=== PATIENT | male | born 1990 | race Caucasian/White ===

== ENCOUNTER 2018-01-23 18:13 | Inpatient (IN) | payer MEDICAID, OTHER ==
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
[2018-01-23] MEDS ORDERED: SPIRONOLACTONE 25 MG TAB PO ONE ×2 (18:53→19:08)
[2018-01-23 19:14] LABS: PLATELET COUNT 240 10^3/uL (150-400)
[2018-01-24] MEDS ORDERED: SPIRONOLACTONE 25 MG TAB PO ONE (08:18)
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
--- NOTE | 2018-01-24 08:31 | ASMTTCLDSP ---
TLC Discharge Disposition Disposition: Answers: Admit Disposition Notes: Notes: Admit 3N. Discharge Concerns/Recommendations: Notes: In consultation with [facility] ED physician, Frederick Mendoza MD and on-call psychiatrist, Mike Martins MD, both concurred that pt appears to meet 27-65 criteria requiring psychiatric hospitalization as pt appears to be at risk of harm to self due to a mental illness condition. Pt was given the 3N prohibited belongings list while in the ED. Was patient given the Answers: Yes Inpatient Behavioral Health Prohibited Belongings List while in the ED? For inpatient Mike Martins MD admission, the following psychiatrist agreed to accept patient for admission to Behavioral Health ([facility]): Type of Hold: Answers: M1/72-hour Hold Hold initiated by: Answers: Police Date Signed: 01/24/2018 08:30 AM Electronically Signed By:Frank Dimas
[2018-01-24] MEDS ORDERED: ACETAMINOPHEN 325 MG TAB PO PRN (11:29)
[2018-01-24] MEDS ORDERED: MAG HYDROX/AL HYDROX/SIMETH 30 ML UDCUP PO PRN (11:29)
[2018-01-24] MEDS ORDERED: MAGNESIUM HYDROXIDE 30 ML UDCUP PO PRN (11:29)
--- NOTE | 2018-01-24 11:32 | ASMTBHMTP ---
Master Treatment Plan Master Treatment Plan Answers: Depressed Mood with for: Suicidal Ideation Date: 01/24/2018 Diagnosis on Admission: Major Depressive Disorder, recurrent, severe 296.33 (F33.2) Expected length of stay: 3-5 Reason for admission: Notes: Pt is a 27 yo, homeless, unemployed, male transitioning to female that began hormone replacement treatment in December 2016 under the care of a Dr. Marroquin in [place], [place], with reported history of depression, PTSD, anxiety and alcohol use disorder, brought to [facility] ED by EMS and BPD on M1 hold from the skilled nursing after she had made longitudinal laceration to left forearm with a razor blade in a purposeful suicide attempt. He wounds were cleansed and dressed/ Per M1 hold: Respondent came into contact at the homeless skilled nursing with advocate-employee Cedric at the [facility] doors. Respondent was bleeding from her wrists, having just used a razor blade to cut herself. Respondent surrendered the razor to Cedric who disposed of it. Dispatch notified, respondent told Cedric she was going outside to finish the job. Respondent despondent upon contact. Patient's stated presenting problems: Notes: "I was cutting on myself and people at the skilled nursing called an ambulance". Patient's goals for treatment: Notes: "I don't know I just arrived here about an hour ago". Patient's strengths: Notes: "I'm nice to people". Identify supports outside of hospital: Notes: "I have no support". Discharge criteria: Notes: SI will resolve and ct. will have a plan to safely manage recurrent SI. Initial disposition plan/considerations: Notes: Discuss and set up psychiatric follow up services in the community. Master Treatment Plan Required Signatures Psychiatrist signature: Answers: Mike Martins MD: RN on-shift signature: Answers: RN: Patient signature: Answers: Patient: Date Signed: 01/24/2018 11:31 AM Electronically Signed By:Mona Pardo
--- NOTE | 2018-01-24 11:36 | ASMTCMCOM ---
CM Note CM Note Notes: CC met with ct. (who goes by Jennifer) to develop MTP. Ct. presented as very guarded and irritable. She was wearing a blanket that was wrapped around her face and spoke in a very soft tone. She did not want to disclose much information and her answers were very short. She has been living in the [place] area for a couple of months. She reporting having her two children living in [place]. She refused to engage in a discussion about f/u in the community. She said that she has no support in the area. Date Signed: 01/24/2018 11:36 AM Electronically Signed By:Mona Pardo
[2018-01-24] MEDS: NICOTINE POLACRILEX 2 MG GUM B PRN ×2 (13:00→16:46)
--- NOTE | 2018-01-24 13:32 | PDMN ---
Medical Necessity Medical necessity: [facility] [id number] Major Depressive Disorder, Adult: Inpatient Care: 27 yo w/ major depressive d/o, recurrent, severe; generalized anxiety d/o; PTSD, etoh intoxication, w/ use d/o, severe; borderline personality d/o. M1 hold for risk of harm to self r/t the above.
--- NOTE | 2018-01-24 18:31 | BCON ---
INTERNAL MEDICINE CONSULTATION. DATE OF CONSULTATION: 01/24/2018 REFERRING PHYSICIAN: Mike Martins MD REASON FOR REFERRAL: Medical clearance for inpatient behavioral health stay. HISTORY OF PRESENT ILLNESS: This patient came to the emergency department yesterday, brought in by ambulance from the homeless assisted with suicidal ideation and forearm lacerations. She is a transgender male to female. She has been at the homeless assisted and she was feeling suicidal. She was intoxicated on alcohol when she arrived. Once she became sober, she was evaluated by the mental health team and admitted for further psychiatric care. She currently is without any acute complaints. PAST MEDICAL HISTORY: 1. Prior suicide attempts. 2. Mental health issues with diagnoses of PTSD, major depression, and anxiety. MEDICATIONS: Prior to admission: 1. Estradiol 1 mg IM q.14 days. 2. Spironolactone 50 mg p.o. twice daily. ALLERGIES: There are no known drug allergies. SOCIAL HISTORY: She is homeless, reportedly she has two 9-year-old children in [place]. She reports that she is on Disability and does not have a profession. She is a smoker. She has succeeded in quitting smoking before. She uses alcohol and has a history of polysubstance abuse. FAMILY HISTORY: Noncontributory. REVIEW OF SYSTEMS: She denies fevers or chills, cough or dyspnea, nausea, vomiting, constipation, or diarrhea. She denies symptoms of alcohol withdrawal , including no shakes and no sweats. Otherwise, a 10-point review of systems is negative. PHYSICAL EXAM: VITAL SIGNS: Blood pressure is 118/63, heart rate is 59, respiratory rate is 16, oxygen saturation is 95% on room air, temperature is 36.6 degrees centigrade. Her weight is 79.4 kg for a body mass index of 25.8. GENERAL: This is a well-nourished, well-developed person, lying in bed, sits up for the exam, cooperative and in no acute distress. HEENT: Extraocular movements are intact. Pupils are equal, round, and reactive to light. Mucous membranes are moist. Dentition is in good condition. NECK: Supple. HEART: Regular rate and rhythm with no murmurs, rubs, or gallops. LUNGS: Clear to auscultation bilaterally. ABDOMEN: Benign. EXTREMITIES: There is no cyanosis, clubbing, or edema. NEUROLOGIC: She is alert and oriented x3. Cranial nerves 2-12 are grossly intact. There is no focal weakness and sensation is intact to light touch. SKIN: There are several superficial lacerations on her left forearm. There is no drainage on the dressing when it is removed. LABORATORY STUDIES: CBC revealed an elevated white blood cell count of 12.72. There was no left shift. Otherwise, it was within normal limits. Serum chemistry revealed normal renal function and electrolytes. Toxicology screen in the serum was negative for salicylates or acetaminophen. Ethyl alcohol was elevated at 177. Toxicology screen in the urine was negative for any substances of abuse. ASSESSMENT AND RECOMMENDATIONS: 1. Mental health issues pending further evaluation and management per Psychiatry and the mental health team. 2. Superficial lacerations. These will heal. She might be okay with no dressings at all but applying a simple nonstick dressing with tape to hold in place would be appropriate also. 3. Tobacco dependence syndrome. She reports awareness that smoking along with estrogen replacement raises her risk for blood clots. She reports she has quit smoking before and needs to quit again. She was encouraged regarding smoking cessation. 4. Alcohol abuse. She does not appear to be intoxicated or in withdrawal at present. I see no medical contraindications to this patient's continued stay in the inpatient behavioral health unit or to any psychiatric medications or procedures. 6. Thank you very much for including me in the care of this patient and please do not hesitate to contact me or the hospitalist service should there be need for further medical evaluation. /[id number]/MODL MTDD
[2018-01-24] MEDS: LORazepam 0.5 MG TAB PO PRN (20:39)
[2018-01-24] MEDS: SPIRONOLACTONE 25 MG TAB PO SCH (20:39)
[2018-01-24] MEDS ORDERED: SPIRONOLACTONE 50 MG TAB PO SCH (21:00)
[2018-01-25] MEDS: SPIRONOLACTONE 25 MG TAB PO SCH ×2 (08:30→19:49)
[2018-01-25] MEDS: NICOTINE POLACRILEX 2 MG GUM B PRN ×4 (08:31→16:25)
--- NOTE | 2018-01-25 12:09 | SOAPPROG ---
SOAP Progress Note Assessment/Plan: Assessment: Major Depressive Disorder with anxious distress; Alcohol Use Disorder, Severe; Nicotine Dependence, Homelessness. Slight improvement noted (see subjective/ objective note). Patient is not safe to discharge at this time as patient continues to exhibit signs of depression, and express depression symptoms. Patient requires continued inpatient care because of current depression, and requires inpatient level of care to stabilize in order to no longer be a danger to herself. Patient could benefit from continued inpatient hospitalization for crisis stabilization, safety, medication evaluation, and established continuity of care for continued treatment on outpatient basis after discharge. Plan: 1. Psychotropic medications: No additional medications at this time; after reviewing indicated and appropriate medication options with patient, patient reports she is not currently interested in psychotropic medications. 2. Review with patient informed consent and recommendations for psychotropic medication treatment listed below 3. Labs: A1c, lipid panel, liver function, TSH 4. Therapy: continue milieu and group therapy 5. Further investigation including gathering information from patients relatives and review of past case records to inform treatment plan. 6. Safety/Wellness plan and follow-up outpatient appointments to be established prior to discharge. Next steps are for patient to meet with children's zoo caretaker to plan a safe discharge plan and establish outpatient services for ongoing treatment. 7. Confer with inpatient treatment team regarding treatment plan. 8. Psychosocial stressors addressed through reservoir caretaker. 9. Legal status: M1 10. Consider discharge this week if patient is in stable condition, safe, and has a safe discharge plan. 11. Substance abuse interventions: alcohol and nicotine 12. Contact patients mother to discuss discharge plan; patient potential to travel to [place] to live with her mother after discharge. PSYCHOTROPIC MEDICATION TREATMENT INFORMED CONSENT and RECOMMENDATIONS: Review nature of condition, diagnosis, and prognosis. Review nature and purpose of psychotropic medication treatment. Review type of psychotropic medications being ordered. Review risk and benefits of psychotropic medication treatment. Review probable length of time patient will need to take medications. Review risk and benefits of not undergoing psychotropic medication treatment. Review alternative treatments to psychotropic medications. Review psychotropic medications contraindications, drug-drug interactions, side effects, and importance of reporting any side effects to a psychiatric provider or nurse during inpatient hospitalization, and upon discharge to patients psychiatric outpatient provider, primary care provider, or other health healthcare receptionist. Review importance of asking a nurse, psychiatric provider, or primary care provider any questions or problems concerning the psychotropic medications. Verify patient understands the information that has been provided, and understands, accepts, and agrees to psychotropic medications. Review patients safety plan and importance of patient to report to staff while hospitalized if patient is ever a danger to self/others, or unable to care for self, and upon discharge, the importance for patient to contact [facility] or [facility], or go to the nearest emergency room, if patient is ever a danger to self/others, or unable to care for self. Recommend that upon discharge patient establish medication management treatment with a psychiatric provider, establishes routine therapy appointments, and follow-up with primary care provider. Verify patient understands and agrees to these recommendations. 01/25/18 12:11 Subjective: Following up with patient for evaluation of depression and safety. Patient reports, "I guess I'm doing better, I don't know." Patient expresses the following psychiatric symptoms moderate depression and anxiety. Patient reports taking medications as prescribed. Patient does not report undesirable side effects from current medications, and agrees to continue current medications. When this TAXI CAB DRIVER asks patient if patient is interested in reviewing medication options for depression and anxiety patient states, "Sure, how about some Xanax or Valium? Something for this anxiety, so I don't have to be worried about people harassing me." When review indicated and safe options with patient, patient states she is not interested in psychotropic medications at this time. Patient describes getting 8 hours of sleep, and reports she feels "okay, I guess." Not really sure if I slept that great. Whatever. Patient expresses interest in traveling to [place] to live with her mother after discharge. Patient reports her mother is her main support and feels as though she will be best supported living in [place] near or with her mother. Objective: Vital Signs Temp Pulse Resp BP Pulse Ox 36.6 C 54 L 14 101/63 97 01/25/18 06:00 01/25/18 06:00 01/25/18 06:00 01/25/18 06:00 01/25/18 06:00 NURSING REPORT: Consulted with nursing for update on patients progress in treatment. Nurses report patient is engaged in treatment, is attending groups, slept 8 hours, expresses the following psychiatric symptoms: moderate depression , exhibits the following psychiatric symptoms: flat affect, withdrawn; is eating all meals, is agreeable to medications and taking as prescribed with no report of side effects, with no s/s of EPS/akathisia, and denies SI/HI, denies A /V hallucinations, and denies delusions. TREATMENT TEAM MEETING: Patient met with treatment team to review treatment plan , goals for hospitalization, and discharge plan. MSE: The patient is a well-nourished transgender male to female looking stated chronological age. Attire is appropriate and dress is casual. Grooming status is inappropriate and disheveled. Ambulation is independent. Gait is normal and coordinated. Posture is normal and relaxed. Eye contact is inappropriate and avoided. Motor activity is appropriate with purposeful, organized, coordinated movements; with no involuntary movements. Attitude is fairly cooperative. Patient appears attentive and does relate well to this interviewer. Language production is spontaneous. R/R/V are normal. Amount is appropriate. Articulation is clear. Patient reports mood as okay with incongruent and flat affect. Patients thought process is linear with no signs of thought disorder. Patient denies suicidal thoughts, denies homicidal ideation. Patient denies auditory, visual hallucinations. Patient denies delusions. Patient does not appear to be attending to internal stimuli. Patients attention and concentration are fair. Patient is oriented to person, place, time. Patients insight and judgment are poor, and appears to be a poor historian. Patient has no apparent dysfunction in recent or remote memory noted , and no evidence of gross cognitive dysfunction noted at any point during the interview. SUBSTANCE ABUSE BRIEF INTERVENTION: Brief intervention regarding the risks of alcohol and nicotine abuse is provided to patient with goal to reduce the risk of harm that could result from the continued use of alcohol and nicotine, with the general aim to investigate the problem, raise awareness of problem, develop a solution with the patient, recommend a specific change or activity, and motivate the patient toward change. Assess substance abuse behavior and give supportive advice about harm reduction, recommend a reduction in hazardous/at- risk consumption patterns, and facilitate referrals for additional specialized treatment with reservoir caretaker. Intermediate goal is for the patient to quit and attend outpatient substance abuse treatment. Intervention focus on intermediate goals to allow for more immediate success in the treatment process to keep the patient motivated. Review following with patient: Alcohol/Binge Drinking risks: short-term: injuries, violence, alcohol poisoning, risky sexual behaviors. Long-term: high blood pressure, stroke, liver disease, digestive problems, cancer, learning and memory problems, depression and anxiety, social problems, and alcohol dependence. Nicotine dependence: lung cancer, other cancers, heart and circulatory system problems, diabetes, eye problems, infertility and impotence, more prone to respiratory infections, weakened senses , teeth and gum disease, premature aging, second hand smoke. Withdrawal symptoms include strong cravings, anxiety, irritability, restlessness, difficulty concentrating, depressed mood, frustration, anger, increased hunger, insomnia, and constipation or diarrhea. OUTPATIENT SUBSTANCE ABUSE TREATMENT: Patient referred to outpatient provider and treatment for continued treatment related to substance abuse. PATIENT'S RESPONSE TO SUBSTANCE ABUSE INTERVENTION: "Whatever, don't really need treatment for these, not an issue, really." - Time Spent With Patient Time Spent With Patient: 25 minutes, met with patient and patient and treatment team to review treatment plan and goals for hospitalization. - Pending Discharge Pending Discharge Within 24 Hours: No Pending Discharge Within 48 Hours: No ICD10 Worksheet Patient Problems: Problems Problem Status Onset Suicide attempt Active Personality disorder Active History of - depression Active Tobacco dependence syndrome Active Alcohol abuse Active Suicidal ideation Acute Alcohol intoxication Acute
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
--- NOTE | 2018-01-25 13:13 | ASMTCMCOM ---
CM Note CM Note Notes: CC tried to contact MOC to no avail. CC will investigate additional phone numbers for MOC.* Date Signed: 01/25/2018 01:12 PM Electronically Signed By:Boaz Gregorio
[2018-01-25] MEDS: LORazepam 0.5 MG TAB PO PRN (16:25)
[2018-01-25] MEDS: OLANZapine DISINTEGR 10 MG TAB PO PRN (19:49)
[2018-01-26] MEDS: LORazepam 0.5 MG TAB PO PRN (08:35)
[2018-01-26] MEDS: SPIRONOLACTONE 25 MG TAB PO SCH ×2 (08:35→19:10)
--- NOTE | 2018-01-26 10:22 | SOAPPROG ---
SOAP Progress Note Assessment/Plan: Assessment: Plan: 01/26/18 10:24 Mood/anxiety: Remains focus of care. Will start Lexapro 10mg daily, monitor. Will allow pt to shave as this is likely instrumental to her reengaging and moving away from regressive stance in preparation for d/c. Subjective: Pt seen, discussed with staff. Reports feeling "just fine." Continues to isolate in her room. Irritable, but less overtly hostile. Asks again to shave , "It's the biggest thing in the world to me." States she doesn't feel "normal " with a amezcua. Also asks for "something for anxiety and depression." Discussed numerous options including benzo's, BuSpar and SSRI's. She prefers trial of Lexapro after through review of risks, benefits and alternatives. Discussed d/c plan and she states she wants to go to [place] to see her mother. RN confirmed with M that she is supportive of this also. Objective: Vital Signs Temp Pulse Resp BP Pulse Ox 36.5 C 52 L 12 95/55 L 100 01/26/18 06:00 01/26/18 06:00 01/26/18 06:00 01/26/18 06:00 01/26/18 06:00 MSE: Lying in bed with blanket over her head. Good eye contact. More cooperative, less hostile. Affect is irritable. Mood is "anxious." TP linear. TC reveals no psychosis. Denies SI. - Time Spent With Patient Time Spent With Patient: 25" ICD10 Worksheet Patient Problems: Problems Problem Status Onset Alcohol use disorder, severe, dependence Acute Homelessness Acute Nicotine dependence Acute Major depressive disorder, recurrent episode, severe with anxious distress Chronic Post traumatic stress disorder Chronic Alcohol abuse Active History of - depression Active Personality disorder Active Suicide attempt Active Tobacco dependence syndrome Active
--- NOTE | 2018-01-26 12:12 | ASMTBHDC ---
Notes Note: Notes: Pt. reports being "just woke up". Pt. stated she slept "good". Pt. reports eating well and having no issues with her medications. Pt. stated she attended two groups yesterday, adding she will not attend any groups today until she is allowed to shave. Pt. stated she is not having any issues while on the unit. Pt. stated she feels "people are being rude" adding some people have used to wrong pronouns. Pt. denied SI, HI, AVH and paranoia. Pt. presents as alert, covering face with blanket, poor eye contact, guarded, and mostly cooperative. Staff report pt. sleeping 8.5 hours and being medication compliant. Date Signed: 01/26/2018 12:11 PM Electronically Signed By:Amanda Beach
--- NOTE | 2018-01-26 12:14 | ASMTBHDC ---
Notes Note: Notes: CC spoke with pt's mother, Vira [phone]. MOC stated she can pick pt up at [facility] [employer] station in [place], [place]. MOC stated she will assist pt. with follow up appointments. MOC stated she wants pt to take the bus that arrives later in the evening to make it easier to pick pt. up. Date Signed: 01/26/2018 12:13 PM Electronically Signed By:Amanda Beach
--- NOTE | 2018-01-26 12:17 | ASMTBHDC ---
Notes Note: Notes: [facility] for 01/27/18 at 1:00pm. Pt. will need to discharge at 8:45am to catch a bus to [place] to get to the [facility] bus on time. Date Signed: 01/26/2018 12:16 PM Electronically Signed By:Amanda Beach
[2018-01-26] MEDS: OLANZapine DISINTEGR 10 MG TAB PO PRN (17:59)
[2018-01-26] MEDS: NICOTINE POLACRILEX 2 MG GUM B PRN (17:59)
[2018-01-27 06:39] VITALS: BP 86/50
[2018-01-27] MEDS: SPIRONOLACTONE 25 MG TAB PO SCH (07:58)
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
== END 2018-01-27 08:45 | disposition home or self-care (01) | DRG 881 ==
LOC: EDUNIT# → EEVIPCON 18:13 → EDSEX 18:13 → BBEH 01-24 09:30
PROVIDERS: ADMIT Psychiatry & Neurology Psychiatry; ATTEND Psychiatry & Neurology Psychiatry
DX: F32.9 Major depressive disorder, single episode, unspecified (principal); F17.200 Nicotine dependence, unspecified, uncomplicated; R45.851 Suicidal ideations; F43.10 Post-traumatic stress disorder, unspecified; F41.9 Anxiety disorder, unspecified; F10.220 Alcohol dependence with intoxication, uncomplicated; F60.3 Borderline personality disorder; S51.812A Laceration without foreign body of left forearm, initial encounter; X78.8XXA Intentional self-harm by other sharp object, initial encounter; Y92.199 Unspecified place in other specified residential institution as the place of occurrence of the external cause; Z59.0 Homelessness
CPT/HCPCS: 80305; G0480